=== PATIENT | male | born 1960 | race Caucasian/White ===

== ENCOUNTER 2018-07-20 06:51 | Emergency (ER) | payer OTHER, BC ==
[~2018-07-20] VITALS: Ht 172.7 cm; Wt 100.0 kg
[2018-07-20] MEDS ORDERED: CEPHALEXIN 500 MG CAP PO ONE (07:15)
--- NOTE | 2018-07-20 07:46 | REP ---
Clinical: Trauma/injury. Technique: AP, lateral, bilateral oblique views of the right fifth digit. Findings: There is partial amputation of the soft tissues and very distal aspect of the terminal tuft involving the fifth digit distal phalanx. No residual foreign body identified. Impression: Bony and soft tissue partial amputation involving the fifth digit terminal tuft. Electronically Signed by Patel Mark MD 07/20/2018 07:37 A
[2018-07-20 08:16] VITALS: BP 188/108
== END 2018-07-20 08:25 | disposition home or self-care (01) ==
LOC: M ED 06:51
DX: S62.666B Nondisplaced fracture of distal phalanx of right little finger, initial encounter for open fracture (principal); S61.306A Unspecified open wound of right little finger with damage to nail, initial encounter; W23.0XXA Caught, crushed, jammed, or pinched between moving objects, initial encounter; Y92.148 Other place in prison as the place of occurrence of the external cause; Y99.0 Civilian activity done for income or pay